=== PATIENT | female | born 1970 | race Caucasian/White ===

== ENCOUNTER 2018-03-17 00:20 | Emergency (ER) | payer OTHER ==
[~2018-03-17] VITALS: Ht 160 cm; Wt 44.0 kg
--- NOTE | 2018-03-17 00:20 | NUR ---
PT BIB [facility], PREBOOK. TAKEN TO CHAIR E
[2018-03-17 00:29] VITALS: BP 139/88
[2018-03-17 01:05] VITALS: BP 127/74
--- NOTE | 2018-03-17 01:05 | NUR ---
Patient discharged with v/s stable. Written and verbal after care instructions given and explained. Patient verbalized understanding. Police with in custody. All questions addressed prior to discharge. Advised to follow up with [facility]D.
== END 2018-03-17 01:05 ==
LOC: MED 00:20
DX: S91.311A Laceration without foreign body, right foot, initial encounter (principal); W25.XXXA Contact with sharp glass, initial encounter; Y93.89 Activity, other specified; Y99.8 Other external cause status; Y92.89 Other specified places as the place of occurrence of the external cause
CPT/HCPCS: 90471; 90715; 99283